=== PATIENT | male | born 1960 | race Caucasian/White ===

== ENCOUNTER 2017-12-20 12:37 | Observation (INO) | payer MEDICARE ==
[2017-12-20] MEDS ORDERED: LORazepam 0.5 MG TABLET PO ×2 (16:45)
[2017-12-20] MEDS ORDERED: ALBUTEROL SULFATE 2.5 MG/3 ML NEBU. NEB (17:00)
[2017-12-20] MEDS: IPRATRPIUM/ALBUTEROL 0.5/2.5MG 3 ML NEBU. NEB (17:00)
[2017-12-20] MEDS ORDERED: hydrALAZINE 20 MG/ML VIAL. IVP (17:00)
[2017-12-20] MEDS ORDERED: DOCUSATE SODIUM 100 MG CAPSULE. PO (17:00)
[2017-12-20] MEDS ORDERED: ONDANSETRON PF 4 MG/2 ML VIAL. IV (17:00)
[2017-12-20] MEDS ORDERED: IPRATROPIUM BROMIDE 0.5 MG/2.5 ML NEBU. NEB (17:00)
[2017-12-20] MEDS: LORazepam 0.5 MG TABLET PO (17:02)
[2017-12-20] MEDS ORDERED: ZOLPIDEM 5 MG TABLET. PO (17:15)
[2017-12-20] MEDS: methylPREDNISolone SOD SUCC PF 40 MG/ML VIAL. IV (18:26)
[2017-12-20] MEDS: ENOXAPARIN 40 MG/0.4 ML SYRINGE. SQ (18:26)
[2017-12-20] MEDS: MORPHINE ER 30 MG TABLET.ER PO (21:23)
[2017-12-20] MEDS: GABAPENTIN 300 MG CAPSULE. PO (21:23)
[2017-12-20] MEDS: ATORVASTATIN CALCIUM 40 MG TABLET. PO (21:24)
[2017-12-20] MEDS: HYDROXYCHLOROQUINE 200 MG TABLET PO (21:24)
[2017-12-21 05:44] LABS: BASO % 0 % (0-3); EOS % 0 % (0-3); HEMATOCRIT 34.3 % (39.0-53.0); HEMOGLOBIN 11.6 g/dL (13.0-17.5); LYMPH # 0.4 x10^3/uL (1.0-4.8); LYMPH % 5 % (24-48); MEAN CORPUSCULAR HEMOGLOBIN 31 pg (25-35); MEAN CORPUSCULAR HGB CONC 34 g/dL (31-37); MEAN CORPUSCULAR VOLUME 92 fL (79-100); MONO # 0.6 x10^3/uL (0.0-1.1); MONO % 7 % (0-9); NEUT # 7.6 x10^3uL (1.8-7.7); NEUT % 88 % (31-73); PLATELET COUNT 230 x10^3/uL (140-400); RED BLOOD COUNT 3.74 x10^6/uL (4.30-5.70); RED CELL DISTRIBUTION WIDTH 13.2 % (11.5-14.5); WHITE BLOOD COUNT 8.6 x10^3/uL (4.0-11.0)
[2017-12-21 05:47] LABS: ANION GAP 9 (6-14); BLOOD UREA NITROGEN 33 mg/dL (8-26); CALCIUM 8.6 mg/dL (8.5-10.1); CARBON DIOXIDE 31 mmol/L (21-32); CHLORIDE 100 mmol/L (98-107); CREATININE 1.5 mg/dL (0.7-1.3); GFR 47.9; GLUCOSE 129 mg/dL (70-99); POTASSIUM 4.4 mmol/L (3.5-5.1); SODIUM 140 mmol/L (136-145)
[2017-12-21 06:06] LABS: ADD MAN DIFF? YES
[2017-12-21] MEDS: IPRATRPIUM/ALBUTEROL 0.5/2.5MG 3 ML NEBU. NEB ×4 (08:00→15:42)
[2017-12-21] MEDS ORDERED: LIDOCAINE 2% 20 ML VIAL. (08:03)
[2017-12-21] MEDS ORDERED: IODIXANOL 320 MG/ML 100 ML VIAL. (08:03)
[2017-12-21] MEDS ORDERED: MIDAZOLAM HCL/PF 5 MG/5 ML VIAL. (08:23)
[2017-12-21] MEDS ORDERED: fentaNYL PF VIAL 100 MCG/2 ML VIAL (08:23)
[2017-12-21] MEDS ORDERED: HEPARIN for IV BOLUS 10,000 UNIT/10 ML VIAL. (08:23)
[2017-12-21] MEDS ORDERED: VERAPAMIL 5 MG/2 ML VIAL. (08:23)
[2017-12-21] MEDS ORDERED: NITROGLYCERIN 200 MCG/2 ML SYRINGE FOR CATH/VASC LAB. (08:24)
[2017-12-21] MEDS: PSEUDOEPHEDRINE ER 120 MG TABLET.ER. PO (09:00)
[2017-12-21] MEDS: ENOXAPARIN 40 MG/0.4 ML SYRINGE. SQ (09:00)
[2017-12-21] MEDS ORDERED: CONTRAST GIVEN MC (09:15)
[2017-12-21 10:04] LABS: % BANDS 1 % (0-9); % EOS 2 % (0-5); % LYMPHS 1 % (24-48); % MONOS 3 % (0-10); % SEGS 93 % (35-66); PLT ESTIMATE ADEQUATE (ADEQUATE)
[2017-12-21] MEDS: MIDAZOLAM HCL/PF 5 MG/5 ML VIAL. IV (10:04)
[2017-12-21] MEDS: VERAPAMIL 5 MG/2 ML VIAL. IART (10:04)
[2017-12-21] MEDS: IODIXANOL 320 MG/ML 100 ML VIAL. IART (10:05)
[2017-12-21] MEDS: NITROGLYCERIN 200 MCG/2 ML SYRINGE FOR CATH/VASC LAB. IART (10:05)
[2017-12-21] MEDS: fentaNYL PF VIAL 100 MCG/2 ML VIAL IV (10:05)
[2017-12-21] MEDS: LIDOCAINE 2% 20 ML VIAL. IJ (10:06)
[2017-12-21] MEDS: IV NORMAL SALINE 500ML BAG 500 ML IV (10:06)
[2017-12-21] MEDS: HEPARIN for IV BOLUS 10,000 UNIT/10 ML VIAL. IART (10:08)
[2017-12-21] MEDS: DULoxetine HCL 20 MG CAPSULE.DR PO (11:50)
[2017-12-21] MEDS: ASPIRIN CHEWABLE 81 MG TABLET. PO (11:50)
[2017-12-21] MEDS: MULTIVITAMIN with MINERAL TABLET. PO (11:50)
[2017-12-21] MEDS: PANTOPRAZOLE 40 MG TABLET.DR. PO (11:50)
[2017-12-21] MEDS: HYDROXYCHLOROQUINE 200 MG TABLET PO (11:50)
[2017-12-21] MEDS: GABAPENTIN 300 MG CAPSULE. PO ×2 (11:50→14:00)
[2017-12-21] MEDS: FUROSEMIDE 40 MG TABLET. PO (11:51)
[2017-12-21] MEDS: LEVOTHYROXINE 112 MCG TABLET PO (11:51)
[2017-12-21] MEDS: CETIRIZINE HCL 10 MG TABLET. PO (11:51)
[2017-12-21] MEDS: MORPHINE ER 30 MG TABLET.ER PO (11:51)
[2017-12-21] MEDS: CHOLECALCIFEROL (VITAMIN D3) 1,000 UNIT TABLET PO (11:51)
[2017-12-21] MEDS: methylPREDNISolone SOD SUCC PF 40 MG/ML VIAL. IV (11:52)
[2017-12-21] MEDS: DOCUSATE SODIUM 100 MG CAPSULE. PO (11:52)
[2017-12-21] MEDS ORDERED: LACTOBACILLUS RHAMNOSUS GG 1 CAPSULE. PO (21:00)
== END 2017-12-21 16:50 | disposition home or self-care (01) ==
LOC: 2 SOUTH 12:37
DX: I25.10 Atherosclerotic heart disease of native coronary artery without angina pectoris (principal); D64.9 Anemia, unspecified; E03.9 Hypothyroidism, unspecified; E66.01 Morbid (severe) obesity due to excess calories; F32.9 Major depressive disorder, single episode, unspecified; G47.33 Obstructive sleep apnea (adult) (pediatric); J21.9 Acute bronchiolitis, unspecified; J84.10 Pulmonary fibrosis, unspecified; J96.21 Acute and chronic respiratory failure with hypoxia; M06.9 Rheumatoid arthritis, unspecified; N18.3 Chronic kidney disease, stage 3 (moderate); Z82.49 Family history of ischemic heart disease and other diseases of the circulatory system; Z82.5 Family history of asthma and other chronic lower respiratory diseases; Z99.81 Dependence on supplemental oxygen
CPT/HCPCS: 36415; 71045; 80048; 85007; 85025; 93456; 96372; 96374; 96375; 96376; 99152; 99153; C1769; C1773; C1892; G0378; G0379; J1644; J1650; J1956; J2250; J2920; J3010; J3490; J7040

== ENCOUNTER → 2018-06-19 | Outpatient (CLI) | payer MEDICARE ==
[2017-12-21 15:11] VITALS: BP 135/75
[~2018-06-19] MED LIST: ASPI-630 PO; CHOL10003 PO; CRESTOR20 MG PO; DOCU-109 PO; DULO20CA PO; FURO40TA4 PO; GABA-586 PO; GUAI600T47 PO; HYDR200T5 PO; IPRA0.2S5 NEB; LEVALBUTEROL 1.25 MG/0.5 ML NEBU. NEB ONE; LEVO112T4 PO; LEVO750T31 PO; LORA0.5T PO; LORA1TAB47 PO; MORP30TA83 PO; MULT-245 PO; PANT20TA2 PO; PRED20TA PO; ZOLP10TA PO
--- NOTE | 2018-06-22 12:30 | RESP ---
DATE OF SERVICE: 06/19/2018 ATTENDING PHYSICIAN: Dr. Barker. The patient underwent full pulmonary function testing dated 06/19/2018. The FEV1 to FVC ratio was 69%, FEV1 was 1.26 liters at 34% of predicted, FVC was 1.86 liters at 38% of predicted. There was a significant bronchodilator response on the FEV1. Total lung capacity was decreased to 50%. Diffusion capacity was decreased. IMPRESSION: 1. Severe restrictive disorder. 2. Some obstruction seen with improvement in FEV1 after bronchodilator. 3. Decreased diffusion capacity down to 41%. GWEN DELVALLE MD DR: PHILIPPE/radha JOB#: [id number] / [id number]
== END | disposition home or self-care (01) ==
LOC: PF 09:36
PROVIDERS: ATTEND Family Medicine
DX: J84.10 Pulmonary fibrosis, unspecified (principal)
CPT/HCPCS: 94060; 94640; 94729

== ENCOUNTER → 2018-11-18 | Outpatient (CLI) | payer MEDICARE ==
[2017-12-21 15:11] VITALS: BP 135/75
[~2018-11-18] MED LIST changes: -GABA-586 PO; +GABA300C18 PO
--- NOTE | 2018-11-21 15:34 | RESP ---
DATE OF SERVICE: 11/18/2018 The patient underwent full pulmonary function testing with administration of bronchodilator. The FEV1 to FVC ratio was 66%, FEV1 was 1.0 liters or 29% of predicted, FVC was 1.65 liters or 33% of predicted. There was a 26% bronchodilator response on the FEV1. Total lung capacity was decreased at 43% of predicted. Diffusion capacity was likewise decreased at 38% of predicted. IMPRESSION: 1. Severe restrictive disorder. 2. 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 3. Diffusion capacity decreased to 38% of predicted. GWEN DELVALLE MD DR: PHILIPPE/radha JOB#: [id number] / [id number] cynthia GONZALEZ DR
== END | disposition home or self-care (01) ==
LOC: PF 09:52
PROVIDERS: ATTEND Family Medicine
DX: J84.10 Pulmonary fibrosis, unspecified (principal); Z88.0 Allergy status to penicillin; Z88.2 Allergy status to sulfonamides; Z88.1 Allergy status to other antibiotic agents; Z79.82 Long term (current) use of aspirin; Z87.891 Personal history of nicotine dependence
CPT/HCPCS: 94060; 94640; 94729